=== PATIENT | male | born 1985 | race American Indian/Alaskan Native ===

== ENCOUNTER 2019-10-21 10:45 | Emergency (ER) | payer SELFPAY ==
--- NOTE | 2019-10-21 12:42 | XRay Report ---
CHEST 2 VIEWS INDICATION / CLINICAL INFORMATION: sob with productive cough. COMPARISON: None available. FINDINGS: SUPPORT DEVICES: None. HEART / MEDIASTINUM: No significant abnormality. LUNGS / PLEURA: No significant pulmonary or pleural abnormality. No pneumothorax. ADDITIONAL FINDINGS: No significant additional findings. IMPRESSION: 1. No acute findings. Signer Name: Ludwig Mckeon MD Signed: 10/21/2019 12:37 PM Workstation Name: [id number]
--- NOTE | 2019-10-21 15:34 | Emergency Department Report ---
- General Chief Complaint: Upper Respiratory Infection Stated Complaint: FLU SX Source: patient Mode of arrival: Ambulatory Limitations: No Limitations - History of Present Illness Initial Comments: A 34-year-old male complaining of flu like symptoms with body aches lower back pain, cloudy and foul smelling urine 1 week. His cough is productive of yellow and green sputum. Denies any fever chest pain and shortness of breath . He denies any chronic medical conditions. Patient is a smoker MD Complaint: cough -: week(s) (1) Severity: moderate Quality: aching Improves With: nothing Associated Symptoms: chills, myalgias, cough. denies: fever, headache, nasal congestion, sore throat, chest pain, nausea, vomiting, diarrhea, dysuria, rash - Related Data Previous Rx's Medication Instructions Recorded Last Taken Type Cyclobenzaprine HCl [Flexeril 5 MG 5 mg PO TID PRN #21 tab 02/26/16 Unknown Rx TAB] Ibuprofen [Motrin 800 MG tab] 800 mg PO Q8HR PRN #30 tablet 02/26/16 Unknown Rx cephALEXin [Keflex] 500 mg PO Q12HR 7 Days #14 cap 10/21/19 Unknown Rx Allergies Allergy/AdvReac Type Severity Reaction Status Date / Time No Known Allergies Allergy Unverified 02/26/16 13:56 ED Review of Systems ROS: Stated complaint: FLU SX Other details as noted in HPI Comment: All other systems reviewed and negative Constitutional: chills, malaise. denies: fever ENT: denies: ear pain, throat pain Respiratory: cough. denies: shortness of breath, SOB with exertion Cardiovascular: denies: chest pain Gastrointestinal: denies: abdominal pain Musculoskeletal: back pain Skin: denies: rash Neurological: denies: headache ED Past Medical Hx - Past Medical History Previous Medical History?: No Hx Asthma: Yes - Social History Smoking Status: Current Every Day Smoker Substance Use Type: None - Medications Home Medications: Home Medications Medication Instructions Recorded Confirmed Last Taken Type Cyclobenzaprine HCl [Flexeril 5 MG 5 mg PO TID PRN #21 tab 02/26/16 Unknown Rx TAB] Ibuprofen [Motrin 800 MG tab] 800 mg PO Q8HR PRN #30 tablet 02/26/16 Unknown Rx cephALEXin [Keflex] 500 mg PO Q12HR 7 Days #14 cap 10/21/19 Unknown Rx ED Physical Exam - General Limitations: No Limitations General appearance: alert, in no apparent distress - Head Head exam: Present: atraumatic - Eye Eye exam: Present: normal appearance. Absent: conjunctival injection - ENT ENT exam: Present: normal exam, normal orophraynx, mucous membranes moist, TM's normal bilaterally, normal external ear exam - Neck Neck exam: Present: full ROM. Absent: lymphadenopathy - Respiratory Respiratory exam: Present: normal lung sounds bilaterally, wheezes, rhonchi. Absent: respiratory distress, prolonged expiratory - Cardiovascular Cardiovascular Exam: Present: regular rate, normal rhythm - GI/Abdominal GI/Abdominal exam: Present: soft. Absent: distended, tenderness - Extremities Exam Extremities exam: Present: normal inspection ED Course Vital Signs 10/21/19 10:58 Temperature 98.8 F Pulse Rate 115 H Respiratory 16 Rate Blood Pressure 117/61 O2 Sat by Pulse 96 Oximetry ED Medical Decision Making - Radiology Data Radiology results: report reviewed interpreted by me: Chest Xray IMPRESSION: 1. No acute findings. - Medical Decision Making 34-year-old male with flulike symptoms 1 week . Flu test is negative. Chest x-ray no acute findings. Patient also had urinary symptoms and he had a slightly elevated WBC in his urine. Patient treated with cephalexin for urinary tract infection. He is instructed to rest and hydrate and follow up with primary care. or return for any worsening symptoms. Critical care attestation.: If time is entered above; I have spent that time in minutes in the direct care of this critically ill patient, excluding procedure time. ED Disposition Clinical Impression: UTI (urinary tract infection), uncomplicated, Viral respiratory illness Disposition: - TO HOME OR SELFCARE Is pt being admited?: No Does the pt Need Aspirin: No Condition: Stable Instructions: Urinary Tract Infection in Men (ED), Viral Syndrome (ED) Additional Instructions: Rest increase oral hydration drink 6-8 glasses of water daily. Take advil or tylenol for pain as directed by package insert. STOP smoking. Follow up with PCP in 3-5 days or return to the emergency room for increase for any shortness of breath chest pain fever vomiting or inability to eat Prescriptions: cephALEXin [Keflex] 500 mg PO Q12HR 7 Days #14 cap Referrals: JOHN ISAAC MD [Primary Care Provider] - 3-5 Days BISMARK POLLARD MD [Staff Physician] - 3-5 Days Time of Disposition: 16:39
[2019-10-21] MEDS ORDERED: IPRATROPIUM/ALBUTEROL SULFATE 3 ML AMPUL.NEB IH ONE (15:35)
[2019-10-21 16:01] LABS: Bilirubin,Urine NEG (Negative); Blood,Urine NEG (Negative); Color,Urine Amber (Yellow); Mucus,Urine 1+ /HPF
[2019-10-21 16:55] VITALS: BP 119/62
== END 2019-10-21 16:54 | disposition home or self-care (01) ==
LOC: ED 10:45
DX: N39.0 Urinary tract infection, site not specified (principal); J06.9 Acute upper respiratory infection, unspecified; J45.909 Unspecified asthma, uncomplicated; F17.200 Nicotine dependence, unspecified, uncomplicated; Z79.899 Other long term (current) drug therapy
CPT/HCPCS: 71046; 81001; 87400; 94640; 94644

== ENCOUNTER 2021-09-23 15:44 | Emergency (ER) | payer SELFPAY ==
[2021-09-23 15:57] VITALS: BP 136/88
--- NOTE | 2021-09-23 17:25 | Emergency Department Report ---
ED General Adult HPI - General Chief complaint: Dizziness Stated complaint: BUG BITE Time Seen by Provider: 09/23/21 17:15 Source: patient Mode of arrival: Ambulatory Limitations: No Limitations - History of Present Illness Initial comments: Patient presents with multiple little bites from a spider. He actually states that he is not sure to spider. He remembers getting bitten by spider behind the right ear. He noticed a couple of sores in that area. However he has noticed sores throughout his body. He does not know if this is bedbugs, spiders, or some other infestation. He left the apartment he was in. He has not been able to get all of his clothes washed yet. He came in for evaluation treatment because of the symptoms. These are all over his body. He has been scratching at them because they do itch and then they form little pustules. He has no other exposure that he can recall. - Related Data Previous Rx's Medication Instructions Recorded Last Taken Type Cyclobenzaprine HCl [Flexeril 5 MG 5 mg PO TID PRN #21 tab 02/26/16 Unknown Rx TAB] Ibuprofen [Motrin 800 MG tab] 800 mg PO Q8HR PRN #30 tablet 02/26/16 Unknown Rx cephALEXin [Keflex] 500 mg PO Q12HR 7 Days #14 cap 09/23/21 Unknown Rx hydrOXYzine PAMOATE [Vistaril] 25 mg PO HS PRN #10 capsule 09/23/21 Unknown Rx predniSONE [Deltasone] 40 mg PO QDAY #10 tab 09/23/21 Unknown Rx Allergies Allergy/AdvReac Type Severity Reaction Status Date / Time No Known Allergies Allergy Unverified 02/26/16 13:56 ED Review of Systems ROS: Stated complaint: BUG BITE Other details as noted in HPI Comment: All other systems reviewed and negative Constitutional: denies: chills Eyes: denies: eye pain ENT: denies: throat pain Respiratory: denies: cough Cardiovascular: denies: chest pain Endocrine: denies: unexplained weight loss Gastrointestinal: denies: abdominal pain Genitourinary: denies: urgency Musculoskeletal: denies: back pain Skin: as per HPI Neurological: denies: headache ED Past Medical Hx - Past Medical History Hx Asthma: Yes - Social History Smoking Status: Current Every Day Smoker Substance Use Type: None - Medications Home Medications: Home Medications Medication Instructions Recorded Confirmed Last Taken Type Cyclobenzaprine HCl [Flexeril 5 MG 5 mg PO TID PRN #21 tab 02/26/16 Unknown Rx TAB] Ibuprofen [Motrin 800 MG tab] 800 mg PO Q8HR PRN #30 tablet 02/26/16 Unknown Rx cephALEXin [Keflex] 500 mg PO Q12HR 7 Days #14 cap 09/23/21 Unknown Rx hydrOXYzine PAMOATE [Vistaril] 25 mg PO HS PRN #10 capsule 09/23/21 Unknown Rx predniSONE [Deltasone] 40 mg PO QDAY #10 tab 09/23/21 Unknown Rx ED Physical Exam - General Limitations: No Limitations, Other (pulse ox noted and normal) General appearance: alert, in no apparent distress - Head Head exam: Present: atraumatic - Eye Eye exam: Present: normal appearance - ENT ENT exam: Present: normal external ear exam - Neck Neck exam: Present: normal inspection. Absent: meningismus - Respiratory Respiratory exam: Present: normal lung sounds bilaterally. Absent: respiratory distress - Cardiovascular Cardiovascular Exam: Present: regular rate, normal rhythm - GI/Abdominal GI/Abdominal exam: Present: soft - Extremities Exam Extremities exam: Present: normal capillary refill - Back Exam Back exam: Absent: CVA tenderness (R), CVA tenderness (L) - Neurological Exam Neurological exam: Present: alert, oriented X3, normal gait - Psychiatric Psychiatric exam: Present: normal affect, normal mood - Skin Skin exam: Present: other (Multiple well-circumscribed lesions on the torso, arms, and legs as well as neck. Either 1 cm in size or smaller. There are no pustular.) ED Course Vital Signs 09/23/21 15:55 Temperature 98.4 F Pulse Rate 91 H Respiratory 16 Rate Blood Pressure 136/88 O2 Sat by Pulse 100 Oximetry - Reevaluation(s) Reevaluation #1: 09/23/21 21:08 Patient was treated with antibiotics and discharged ED Medical Decision Making - Medical Decision Making Patient presents with reports of insect bite. Whether this is accurate or not is unclear. He certainly has multiple pustules noted. He does not have a vesicle that is of various stages suggestive of shingles. He does not have any involvement of the palms of his hands that would suggest syphilis. He does not have any skin excoriations from scratching. Whether these are formication or something else is unclear. Regardless, there does appear to be a pustular formation consistent with infection. This was treated empirically. Critical Care Time: No Critical care attestation.: If time is entered above; I have spent that time in minutes in the direct care of this critically ill patient, excluding procedure time. ED Disposition Clinical Impression: Insect bite Qualifiers: Encounter type: initial encounter Site of insect bite: unspecified site Qualified Code(s): W57.XXXA - Bitten or stung by nonvenomous insect and other nonvenomous arthropods, initial encounter Disposition: HOME / SELF CARE / HOMELESS Is pt being admited?: No Condition: Stable Additional Instructions: Washer close. Return for problems. Follow-up with your regular doctor. Do not drive while taking medicine for itching. Prescriptions: predniSONE [Deltasone] 40 mg PO QDAY #10 tab cephALEXin [Keflex] 500 mg PO Q12HR 7 Days #14 cap hydrOXYzine PAMOATE [Vistaril] 25 mg PO HS PRN #10 capsule PRN Reason: Itching Referrals: PRIMARY CARE, [Primary Care Provider] - 3-5 Days
== END 2021-09-23 17:51 | disposition home or self-care (01) ==
LOC: ED 15:44
DX: S00.461A Insect bite (nonvenomous) of right ear, initial encounter (principal); J45.909 Unspecified asthma, uncomplicated; F17.200 Nicotine dependence, unspecified, uncomplicated; X58.XXXA Exposure to other specified factors, initial encounter; Y93.89 Activity, other specified; Y92.89 Other specified places as the place of occurrence of the external cause; Y99.8 Other external cause status
CPT/HCPCS: 99282